=== PATIENT | female | born 1980 | race Caucasian/White ===

== ENCOUNTER 2016-06-18 16:36 | Emergency (ER) | payer OTHER ==
[2016-06-18 17:34] VITALS: RESP 16; TEMP 99.1
[2016-06-18] MEDS ORDERED: NS 1,000 ML IV ONE (17:36)
[2016-06-18] MEDS ORDERED: ONDANSETRON 4 MG/2 ML VIAL IVP ONE (17:37)
--- NOTE | 2016-06-18 17:45 | UCPHY ---
H & P Time Seen by Provider: 06/18/16 17:44 Patient Type: Established HPI/ROS: HPI: 36-year-old female presents to urgent care with chief concern nausea, vomiting, diarrhea. Symptoms onset suddenly at 4:00 a.m.. Reports generalized abdominal cramping, chills, myalgias. Denies dizziness, headache, shortness of breath, chest pain, focal abdominal pain, urinary symptoms, back or flank pain, rash. No sick household contacts. Recovering from a URI last week. No recent antibiotic use. No recent international travel. Did not eat at a restaurant last night. ROS:10 point review of systems is negative other than as stated in HPI Social History: Smoking Status: Former smoker Physical Exam: Vital signs stable, reviewed by me General: Awake, alert, calm, cooperative. No acute distress. Head: Normalocephalic. Atraumatic. EENT: PERRLA. EOMI. No pallor or injection. Anicteric. No nystagmus. No injection. TMs intact bilaterally with normal landmarks. Minimal rhinorrhea. Oropharynx without redness, exudates, or lesions. Tonsils 2+ bilaterally, no exudates. Neck: Supple, nontender. No lymphadenopathy. Full range of motion. No meningismus. Respiratory: Breathing unlabored. Breath sounds equal bilaterally and clear to auscultation. No adventitious sounds. CV: Chest nontender, atraumatic. Heart rate regular. No murmur, distal pulses 2+ bilaterally. Brisk cap refill all extremities. GI: Abdomen soft, generalized diffuse tenderness. Bowel sounds hyperactive and positive x4 quadrants. : No suprapubic tenderness. No CVA or flank tenderness. Neuro: Alert. Oriented x 3. Speech clear. Nonfocal cranial nerves throughout. Sensation intact all extremities. Skin: Skin warm, dry, intact. No rashes, abrasions, or lacerations. Skin turgor normal. Extremities: Full range of motion in all 4 extremities. Strength 5+ all extremities. Constitutional: Initial Vital Signs Temperature (C) 37.3 C 06/18/16 17:27 Heart Rate 78 06/18/16 17:27 Respiratory Rate 16 06/18/16 17:27 Blood Pressure 108/68 06/18/16 17:27 O2 Sat (%) 97 06/18/16 17:27 O2 Delivery Mode Room Air Allergies/Adverse Reactions: No Known Allergies Allergy (Unverified 06/18/16 17:26) Home Medications: Medication Instructions Recorded Ondansetron Odt [Zofran Odt 4 mg 4 mg PO Q4 PRN #6 tab 06/18/16 (*)] Medical Decision Making ED Course/Re-evaluation: 1700:36-year-old female presents to urgent care with nausea, vomiting, diarrhea , generalized abdominal cramping. Vital signs are stable. No focal abdominal pain. Given 1 L normal saline. Given 4 mg IV Zofran. Given 0.25 hyoscyamine. 181: Symptoms are significantly improved. Nausea resolved. Abdominal discomfort is 1 to 2/10 generalized cramping. No focal abdominal pain. Vitals are stable. Discharged follow up with primary care. Counseled to return for worsening abdominal pain. Tolerating p.o.. Differential Diagnosis: Differential diagnosis includes but is not limited to viral gastroenteritis, food poisoning, food-borne illness - Data Points Laboratory Results: Laboratory Results 06/18/16 17:40 06/18/16 17:40 06/18/16 06/18/16 06/18/16 17:40 17:40 17:40 WBC 8.67 10^3/uL 10^3/uL (3.80-9.50) RBC 5.03 10^6/uL 10^6/uL (4.18-5.33) Hgb 16.0 g/dL g/dL (12.6-16.3) Hct 47.4 % H % (38.0-47.0) MCV 94.2 fL fL (81.5-99.8) MCH 31.8 pg pg (27.9-34.1) MCHC 33.8 g/dL g/dL (32.4-36.7) RDW 12.7 % % (11.5-15.2) Plt Count 226 10^3/uL 10^3/uL (150-400) MPV 9.8 fL fL (8.7-11.7) Neut % (Auto) 90.7 % H % (39.3-74.2) Lymph % (Auto) 5.1 % L % (15.0-45.0) Crockett % (Auto) 3.8 % L % (4.5-13.0) Eos % (Auto) 0.0 % L % (0.6-7.6) Baso % (Auto) 0.2 % L % (0.3-1.7) Nucleat RBC Rel Count 0.0 % % (0.0-0.2) Absolute Neuts (auto) 7.86 10^3/uL H 10^3/uL (1.70-6.50) Absolute Lymphs (auto) 0.44 10^3/uL L 10^3/uL (1.00-3.00) Absolute Monos (auto) 0.33 10^3/uL 10^3/uL (0.30-0.80) Absolute Eos (auto) 0.00 10^3/uL L 10^3/uL (0.03-0.40) Absolute Basos (auto) 0.02 10^3/uL 10^3/uL (0.02-0.10) Absolute Nucleated RBC 0.00 10^3/uL 10^3/uL (0-0.01) Immature Gran % 0.2 % % (0.0-1.1) Immature Gran # 0.02 10^3/uL 10^3/uL (0.00-0.10) Sodium 140 mEq/L mEq/L (134-144) Potassium 3.9 mEq/L mEq/L (3.5-5.2) Chloride 102 mEq/L mEq/L (97-110) Carbon Dioxide 22 mEq/l mEq/l (22-31) Anion Gap 16 mEq/L mEq/L (8-16) BUN 17 mg/dL mg/dL (7-23) Creatinine 0.8 mg/dL mg/dL (0.6-1.0) Estimated GFR > 60 Glucose 121 mg/dL H mg/dL (70-100) Calcium 8.9 mg/dL mg/dL (8.5-10.4) Beta HCG, Qual NEGATIVE Medications Given: Discontinued Medications Hyoscyamine Sulfate (Levsin, Hyomax-Sl) 0.25 mg PO EDNOW ONE Stop: 06/18/16 18:06 Last Admin: 06/18/16 18:15 Dose: 0.25 mg Sodium Chloride (Ns) 1,000 mls @ 0 mls/hr IV ONCE ONE PRN Reason: Wide Open Stop: 06/18/16 17:37 Last Admin: 06/18/16 17:51 Dose: 1,000 mls Ondansetron HCl (Zofran) 4 mg IVP EDNOW ONE Stop: 06/18/16 17:38 Last Admin: 06/18/16 17:51 Dose: 4 mg Departure - Departure Disposition: Home, Routine, Self-Care Clinical Impression: Nausea vomiting and diarrhea Condition: Good Instructions: Gastroenteritis (ED) Additional Instructions: Plan: Plenty of fluids Electrolyte replacement Zofran every 4-6 hours as needed for nausea Start with clear liquids and advance to bland diet as tolerated Follow up with primary care provider tomorrow Wednesday for recheck without fail-- When you call to schedule appointment, please let the office know you are an " ER follow up" appointment" For worsening abdominal pain or other concerning symptoms go to emergency department promptly Referrals: Grupo Abraham MD [Primary Care Provider] - As per Instructions Prescriptions: Ondansetron Odt [Zofran Odt 4 mg (*)] 4 mg PO Q4 PRN #6 tab PRN Reason: nausea - PQRS PQRS Measurement: Not applicable
[2016-06-18 17:49] LABS: ADD DIFF? NO; ADD MORPH? NO; ADD SCAN? NO; FRAGMENT RBC FLAG 0 (0-99); LIPEMIA HEMOLYSIS FLAG 90 (0-99); PLATELET CLUMPS FLAG 0 (0-99)
[2016-06-18 17:52] LABS: % IMMATURE GRANULYOCYTES 0.2 % (0.0-1.1); ABSOLUTE IMMATURE GRANULOCYTES 0.02 10^3/uL (0.00-0.10); ATYPICAL LYMPHOCYTE FLAG 20 (0-99); HEMATOCRIT 47.4 % (38.0-47.0); LEFT SHIFT FLG 10 (0-99); MEAN CELL HEMOGLOBIN 31.8 pg (27.9-34.1); MEAN CELL HEMOGLOBIN CONCENTR. 33.8 g/dL (32.4-36.7); MEAN CELL VOLUME 94.2 fL (81.5-99.8); MEAN PLATELET VOLUME 9.8 fL (8.7-11.7); PLATELET COUNT 226 10^3/uL (150-400); RED BLOOD CELL COUNT 5.03 10^6/uL (4.18-5.33); RED CELL DISTRIBUTION WIDTH 12.7 % (11.5-15.2)
[2016-06-18 17:58] LABS: ANION GAP 16 mEq/L (8-16); CALCIUM 8.9 mg/dL (8.5-10.4); CARBON DIOXIDE 22 mEq/l (22-31); CHLORIDE 102 mEq/L (97-110); CREATININE 0.8 mg/dL (0.6-1.0); GLOMERULAR FILTRATION RATE > 60; GLUCOSE 121 mg/dL (70-100); POTASSIUM 3.9 mEq/L (3.5-5.2); SODIUM 140 mEq/L (134-144)
[2016-06-18] MEDS ORDERED: HYOSCYAMINE SULFATE 0.125 MG TAB PO ONE (18:05)
[2016-06-18 18:24] VITALS: BP 102/70; PULSE 73; O2SAT 95
== END 2016-06-18 18:48 | disposition home or self-care (01) ==
LOC: CED 16:36
DX: R11.2 Nausea with vomiting, unspecified (principal); R19.7 Diarrhea, unspecified; Z87.891 Personal history of nicotine dependence
CPT/HCPCS: 80048-PO; 84703-PO; 85025-PO; 96360-PO; 96361-PO; 96374-PO; 99214-PO; G0463-PO

== ENCOUNTER → 2016-09-03 | Outpatient (CLI) | payer OTHER | PROVIDERS: ATTEND Otolaryngology | DX: R13.10 Dysphagia, unspecified (principal); K22.4 Dyskinesia of esophagus; K21.9 Gastro-esophageal reflux disease without esophagitis; F45.8 Other somatoform disorders; R07.0 Pain in throat | CPT/HCPCS: 92611-GN ==